=== PATIENT | female | born 1935 | race Caucasian/White ===

== ENCOUNTER 2017-12-30 10:22 | Emergency (ER) | payer BC, MEDICARE ==
--- NOTE | 2017-12-30 11:45 | RAD ---
CHEST 1 VIEW: Date: 12/30/17 HISTORY: Cough. COMPARISON: Chest 2 views dated 10/03/14. FINDINGS: Increased interstitial markings in the lung bases involving the hilum. No pneumothorax. No focal air space consolidation. No effusion. Cardiac silhouette and mediastinal contours are similar. 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 CT may be helpful in this patient. Pulmonary edema or chronic atypical infectious process is also a possibility, although felt less likely. POS: [facility]
--- NOTE | 2018-01-14 15:08 | EKG ---
Test Reason : Blood Pressure : / mmHG Vent. Rate : 080 BPM Atrial Rate : 080 BPM P-R Int : 148 ms QRS Dur : 076 ms QT Int : 368 ms P-R-T Axes : 044 052 059 degrees QTc Int : 424 ms Normal sinus rhythm Low voltage QRS Nonspecific ST abnormality Abnormal ECG Confirmed by TRUDY LEONE D.O. ([id number]), design editor EVER BRENNER ([id number]) on 01/14/2018 3:07:43 PM Referred By: Confirmed By:TRUDY LEONE D.O.
== END 2017-12-30 12:54 | disposition home or self-care (01) ==
LOC: ERS 10:22
DX: J18.9 Pneumonia, unspecified organism (principal); K21.9 Gastro-esophageal reflux disease without esophagitis; E78.5 Hyperlipidemia, unspecified; Z87.891 Personal history of nicotine dependence; Z79.899 Other long term (current) drug therapy
CPT/HCPCS: 71045; 87081; 87430; 93005

== ENCOUNTER 2017-12-30 21:36 | Emergency (ER) | payer BC, MEDICARE ==
[2017-12-30] MEDS ORDERED: Ondansetron HCl/PF 4 MG/2 ML Vial ONE ×2 (22:20→22:36)
[2017-12-30 22:43] LABS: #Basophils 0.1 thou/uL (0.0-0.2); #Eosinphils 0.3 thou/uL (0.0-0.7); #Lymphocytes 2.3 thou/uL (1.20-3.40); #Monocytes 0.7 thou/uL (0.11-0.59); #Neutrophils 8.1 thou/uL (1.40-6.50); %Basophils 0.5 % (0.0-1.0); %Eosinophils 2.6 % (0.0-10.0); %Lymphocytes 19.7 % (21.0-51.0); %Monocytes 6.4 % (0.0-10.0); %Neutrophils 70.8 % (42.0-75.0); Hemoglobin 13.9 g/dL (12.0-16.0); Mean Corpuscular HGB CONC 33.6 g/dL (32.0-36.0); Mean Corpuscular Hemoglobin 31.6 pg (27.0-31.0); Mean Platelet Volume 6.2 fL (7.4-10.4); Platelet Count 275 thou/uL (130-400); RBC Distribution Width 12.2 % (11.5-14.5); Red Blood Cell (RBC) Count 4.39 mill/uL (4.20-5.40); White Blood Cell (WBC) Count 11.4 thou/uL (4.8-10.8)
[2017-12-30 23:07] LABS: ALT (SGPT) 18 U/L (8-55); AST (SGOT) 12 U/L (5-34); Albumin 4.1 g/dL (3.4-4.8); Alkaline Phosphatase 68 U/L (40-150); Anion Gap 16 mmol/L (10-20); BUN (Urea Nitrogen) 13 mg/dL (9.8-20.1); Bilirubin, Total 0.7 mg/dL (0.2-1.2); Calc. Creatinine Clearance 0 mL/min (70-130); Calcium 9.4 mg/dL (7.8-10.44); Carbon Dioxide 27 mmol/L (23-31); Chloride 97 mmol/L (98-107); Estimated GFR-MDRD 68; Globulin 3.1 g/dL (2.4-3.5); Glucose 129 mg/dL (83-110); Potassium 3.8 mmol/L (3.5-5.1); Protein, Total 7.2 g/dL (6.0-8.3); Sodium 136 mmol/L (136-145)
[2017-12-30 23:12] LABS: CKMB 1.1 ng/mL (0-6.6); Troponin I Less than 0.010 ng/mL (< 0.028)
[2017-12-31] MEDS ORDERED: Metoclopramide HCl 10 MG/2 ML VIAL ONE (00:39)
[2017-12-31] MEDS ORDERED: Doxycycline 100 MG CAP PO SCH (01:30)
--- NOTE | 2018-02-15 01:12 | EKG ---
Test Reason : Blood Pressure : / mmHG Vent. Rate : 073 BPM Atrial Rate : 073 BPM P-R Int : 144 ms QRS Dur : 064 ms QT Int : 404 ms P-R-T Axes : 058 036 056 degrees QTc Int : 445 ms Normal sinus rhythm Low voltage QRS Borderline ECG Confirmed by ALFONSO OTERO ([id number]), assistant editor EVER BRENNER ([id number]) on 02/15/2018 1:12:17 AM Referred By: Confirmed By:ALFONSO OTERO
== END 2017-12-31 01:58 | disposition home or self-care (01) ==
LOC: ERS 21:36
DX: R11.10 Vomiting, unspecified (principal); T37.8X5A Adverse effect of other specified systemic anti-infectives and antiparasitics, initial encounter; K30 Functional dyspepsia; K21.9 Gastro-esophageal reflux disease without esophagitis; E78.5 Hyperlipidemia, unspecified; Z87.891 Personal history of nicotine dependence; Z79.891 Long term (current) use of opiate analgesic; Z79.899 Other long term (current) drug therapy
CPT/HCPCS: 71045; 80053; 82553; 84484; 85025; 87081; 87430; 93005; 96361; 96365; 96375; J2405; J2765

== ENCOUNTER 2018-12-02 15:24 | Outpatient (CLI) | payer BC, MEDICARE ==
--- NOTE | 2018-12-02 17:18 | BD ---
DEXA BONE DENSITY: HISTORY: Osteoporosis. Postmenopausal female. COMPARISON: None. FINDINGS: LUMBAR SPINE BMD (g/cm2) T-SCORE Z-SCORE L1 1.160 1.5 4.0 L2 1.257 2.1 4.8 L3 1.365 2.6 5.4 L4 1.198 1.2 4.2 TOTAL 1.238 1.7 4.5 FEMORAL NECK 1.038 1.7 4.1 TOTAL FEMUR 1.204 2.1 4.3 IMPRESSION: 1. Lumbar spine World Health Organization (WHO) classification is normal. Fracture risk not increas ed. 2. Femoral neck World Health Organization (WHO) classification is normal. 3. Ten year fracture risk: FRAX is not reported because all T-scores are at or above -1.0. POS: [facility]
== END 2018-12-02 15:25 | disposition home or self-care (01) ==
LOC: BICMAMMO 15:24
PROVIDERS: ATTEND Internal Medicine Rheumatology
DX: M81.0 Age-related osteoporosis without current pathological fracture (principal)
CPT/HCPCS: 77080

== ENCOUNTER 2019-01-08 14:01 | Outpatient (CLI) | payer BC, MEDICARE ==
--- NOTE | 2019-01-13 18:27 | MMO ---
Bilateral MAMMO Bilat Screen [facility]. CLINICAL HISTORY: Patient is 83 years old and is seen for screening. The patient has the following family history of breast cancer: 2 maternal aunts. The patient has no personal history of cancer. VIEWS: The views performed were: bilateral craniocaudal with tomosynthesis and bilateral mediolateral oblique with tomosynthesis. FILMS COMPARED: The present examination has been compared to prior imaging studies performed at [facility] on 02/16/2013, 03/22/2014 and 08/30/2015, and at [facility] on 02/26/2017. MAMMOGRAM FINDINGS: There are scattered fibroglandular densities. There are no suspicious masses, suspicious calcifications, or new areas of architectural distortion. IMPRESSION: THERE IS NO MAMMOGRAPHIC EVIDENCE OF MALIGNANCY. A ROUTINE FOLLOW-UP MAMMOGRAM IN 1 YEAR IS RECOMMENDED. THE RESULTS OF THIS EXAM WERE SENT TO THE PATIENT. ACR BI-RADS Category 1 - Negative MAMMOGRAPHY NOTE: 1. A negative mammogram report should not delay a biopsy if a dominant of clinically suspicious mass is present. 2. Approximately 10% to 15% of breast cancers are not detected by mammography. 3. Adenosis and dense breasts may obscure an underlying neoplasm.
== END 2019-01-08 14:02 | disposition home or self-care (01) ==
LOC: BICMAMMO 14:01
PROVIDERS: ATTEND Family Medicine
DX: Z12.31 Encounter for screening mammogram for malignant neoplasm of breast (principal)
CPT/HCPCS: 77063; 77067

== ENCOUNTER 2019-01-26 10:42 | Outpatient (CLI) | payer BC, MEDICARE | END 2019-01-26 10:43 | disposition home or self-care (01) | LOC: CTENTCT 10:42 → EDSTATUS 14:48 | PROVIDERS: ATTEND Specialist | DX: J01.81 Other acute recurrent sinusitis (principal) | CPT/HCPCS: 70486 ==

== ENCOUNTER 2020-08-22 13:19 | Outpatient (CLI) | payer OTHER, MEDICARE ==
--- NOTE | 2020-08-22 14:17 | MMO ---
Bilateral MAMMO Bilat Screen [facility]. CLINICAL HISTORY: Patient is 84 years old and is seen for screening. The patient has the following family history of breast cancer: 2 maternal aunts. The patient has no personal history of cancer. VIEWS: The views performed were: bilateral craniocaudal with tomosynthesis and bilateral mediolateral oblique with tomosynthesis. FILMS COMPARED: The present examination has been compared to prior imaging studies performed at [facility] on 03/22/2014 and 08/30/2015, and at [facility] on 02/26/2017 and 01/08/2019. This study has been interpreted with the assistance of computer-aided detection. MAMMOGRAM FINDINGS: There are scattered fibroglandular densities. There are stable benign appearing calcifications seen in both breasts. There are no suspicious masses, suspicious calcifications, or new areas of architectural distortion. IMPRESSION: THERE IS NO MAMMOGRAPHIC EVIDENCE OF MALIGNANCY. A ROUTINE FOLLOW-UP MAMMOGRAM IN 1 YEAR IS RECOMMENDED. THE RESULTS OF THIS EXAM WERE SENT TO THE PATIENT. ACR BI-RADS Category 2 - Benign finding MAMMOGRAPHY NOTE: 1. A negative mammogram report should not delay a biopsy if a dominant of clinically suspicious mass is present. 2. Approximately 10% to 15% of breast cancers are not detected by mammography. 3. Adenosis and dense breasts may obscure an underlying neoplasm. Reported by: CONSTANZA PEREIRA MD Electonically Signed: [id number]
== END 2020-08-22 13:20 | disposition home or self-care (01) ==
LOC: BICMAMMO 13:19
PROVIDERS: ATTEND Family Medicine
DX: Z12.31 Encounter for screening mammogram for malignant neoplasm of breast (principal); Z80.3 Family history of malignant neoplasm of breast
CPT/HCPCS: 77063; 77067

== ENCOUNTER 2021-02-14 10:32 | Outpatient (CLI) | payer MEDICARE | END 2021-02-14 10:33 | disposition home or self-care (01) | LOC: CTENTCT 10:32 | PROVIDERS: ATTEND Specialist | DX: J32.8 Other chronic sinusitis (principal) | CPT/HCPCS: 70486 ==

== ENCOUNTER 2021-05-23 09:52 | Outpatient (CLI) | payer MEDICARE | END 2021-05-23 09:53 | disposition home or self-care (01) | LOC: BICMAMMO 09:52 | PROVIDERS: ATTEND Internal Medicine Rheumatology | DX: M81.0 Age-related osteoporosis without current pathological fracture (principal) | CPT/HCPCS: 77080 ==

== ENCOUNTER 2022-03-05 12:27 | Outpatient (CLI) | payer MEDICARE ==
[2022-03-05] MEDS ORDERED: ISOVUE-370 76% 1 ML ONE (15:20)
== END 2022-03-05 12:28 | disposition home or self-care (01) ==
LOC: BICCT 12:27
PROVIDERS: ATTEND Physician Assistant Medical
DX: K51.00 Ulcerative (chronic) pancolitis without complications (principal); K21.9 Gastro-esophageal reflux disease without esophagitis; R10.33 Periumbilical pain
CPT/HCPCS: 74177; 82565

== ENCOUNTER 2022-10-16 15:16 | Outpatient (CLI) | payer MEDICARE, OTHER ==
[2022-10-16 17:04] LABS: #Basophils 0.1 thou/uL (0.0-0.2); #Eosinphils 0.2 thou/uL (0.0-0.7); #Lymphocytes 2.1 thou/uL (1.20-3.40); #Monocytes 0.6 thou/uL (0.11-0.59); #Neutrophils 4.8 thou/uL (1.40-6.50); %Basophils 0.7 % (0.0-1.0); %Eosinophils 3.1 % (0.0-10.0); %Lymphocytes 27.1 % (21.0-51.0); %Monocytes 7.8 % (0.0-10.0); %Neutrophils 61.3 % (42.0-75.0); Hemoglobin 13.2 g/dL (12.0-16.0); Mean Corpuscular HGB CONC 33.5 g/dL (32.0-36.0); Mean Corpuscular Hemoglobin 33.5 pg (27.0-31.0); Mean Platelet Volume 7.1 fL (7.4-10.4); Platelet Count 307 10x3/uL (130-400); RBC Distribution Width 11.6 % (11.5-14.5); Red Blood Cell (RBC) Count 3.93 mill/uL (4.20-5.40); White Blood Cell (WBC) Count 7.8 10x3/uL (4.8-10.8)
[2022-10-16 17:34] LABS: ALT (SGPT) 16 U/L (8-55); AST (SGOT) 15 U/L (5-34); Alkaline Phosphatase 60 U/L (40-110); Anion Gap 16 mmol/L (10-20); BUN (Urea Nitrogen) 22 mg/dL (9.8-20.1); Bilirubin, Total 0.8 mg/dL (0.2-1.2); Calc. Creatinine Clearance 0 mL/min (70-130); Calcium 9.2 mg/dL (7.8-10.44); Carbon Dioxide 24 mmol/L (23-31); Chloride 104 mmol/L (98-107); Estimated GFR 52; Globulin 2.4 g/dL (2.4-3.5); Glucose 171 mg/dL (83-110); Potassium 4.2 mmol/L (3.5-5.1); Protein, Total 6.4 g/dL (5.8-8.1); Sodium 140 mmol/L (136-145)
== END 2022-10-16 15:17 | disposition home or self-care (01) ==
LOC: SCSRAD 15:16
PROVIDERS: ATTEND Family Medicine
DX: R06.00 Dyspnea, unspecified (principal); R61 Generalized hyperhidrosis
CPT/HCPCS: 36415; 71046; 80053; 84443; 85025

== ENCOUNTER 2023-07-23 11:20 | Outpatient (CLI) | payer OTHER | END 2023-07-23 11:21 | disposition home or self-care (01) | LOC: SCSRAD 11:20 | PROVIDERS: ATTEND Family Medicine | DX: M25.561 Pain in right knee (principal); M25.562 Pain in left knee; M17.0 Bilateral primary osteoarthritis of knee ==

== ENCOUNTER 2023-08-20 17:00 | Outpatient (CLI) | payer OTHER | END 2023-08-20 17:01 | disposition home or self-care (01) | LOC: SLEEPLAB 17:00 | PROVIDERS: ATTEND Family Medicine | DX: G47.33 Obstructive sleep apnea (adult) (pediatric) (principal); R06.83 Snoring; G47.10 Hypersomnia, unspecified; I10 Essential (primary) hypertension; G47.00 Insomnia, unspecified; I49.3 Ventricular premature depolarization; I49.1 Atrial premature depolarization | CPT/HCPCS: 95811 ==

== ENCOUNTER 2024-07-19 08:20 | Inpatient (IN) | payer OTHER ==
[2024-07-13 11:07] VITALS: BMI 28.1
[2024-07-19] MEDS ORDERED: Vancomycin 1 GM/200 ML (FROZEN) BAG ONE (09:08)
[2024-07-19] MEDS ORDERED: Sodium Chloride 0.9% 100 ML ONE ×2 (09:08→09:25)
[2024-07-19] MEDS ORDERED: Tranexamic Acid 1,000 MG/10 ML VIAL ONE ×2 (09:08→12:32)
[2024-07-19] MEDS ORDERED: CEFAZOLIN 2 GM VIAL ONE (09:25)
[2024-07-19] MEDS ORDERED: Lidocaine 1% (PF) 30 ML VIAL ONE (09:25)
[2024-07-19] MEDS ORDERED: Bupivacaine 0.25% HCL 30 ML VIAL ONE (09:25)
[2024-07-19] MEDS ORDERED: Bupivacaine PF 0.5% 30 ML VIAL ONE (09:26)
[2024-07-19] MEDS ORDERED: fentaNYL 50 mcg/mL 1 mL Vial ONE (09:26)
[2024-07-19] MEDS ORDERED: PROPOFOL 20 ML ONE (09:56)
[2024-07-19] MEDS ORDERED: Lidocaine 1% PF 5 ML VIAL ONE (09:56)
[2024-07-19] MEDS ORDERED: methylPREDNISolone Acetate 40 mg/ml Vial ONE (09:57)
[2024-07-19] MEDS ORDERED: Sevoflurane 250 ML INH ANEST BOTTLE ONE (09:58)
[2024-07-19] MEDS ORDERED: fentaNYL 50 mcg/mL 1 mL Vial SLOW IVP PRN (09:58)
[2024-07-19] MEDS ORDERED: Promethazine HCl 25 MG/ML VIAL IM PRN ×2 (10:00→12:12)
[2024-07-19] MEDS ORDERED: Ropivacaine 0.2% 550 ML 550 ML NERVE BLCK SCH (10:00)
[2024-07-19] MEDS ORDERED: Ondansetron PF 4 MG/2 ML Vial IVP PRN ×2 (10:00→12:12)
[2024-07-19] MEDS ORDERED: traMADol HCl 50 MG TAB PO PRN ×2 (10:00)
[2024-07-19] MEDS ORDERED: fentaNYL PF 100 MCG/2 ML SYRINGE ONE ×3 (10:46→13:05)
[2024-07-19] MEDS ORDERED: PHENYLEPHRINE-NS 100 MCG/ML 10 ML SYRINGE ONE (10:51)
[2024-07-19] MEDS ORDERED: ePHEDrine Sulfate 50 MG/10 ML VIAL ONE (10:57)
[2024-07-19] MEDS ORDERED: Ondansetron PF 4 MG/2 ML Vial ONE (11:05)
[2024-07-19] MEDS ORDERED: Dexamethasone 4 mg/ml Vial ONE (11:05)
[2024-07-19] MEDS ORDERED: diphenhydrAMINE 25 MG CAP PO PRN (12:12)
[2024-07-19] MEDS ORDERED: Zolpidem Tartrate 5 MG TAB PO PRN (12:12)
[2024-07-19] MEDS ORDERED: Meclizine HCl 25 MG TAB PO PRN (12:14)
[2024-07-19] MEDS ORDERED: Ondansetron ODT 4 MG TAB PO PRN (12:14)
[2024-07-19] MEDS ORDERED: Pentazocine HCl/Naloxone HCl 50/0.5 MG TAB PO PRN (12:15)
[2024-07-19] MEDS ORDERED: Tranexamic Acid 1,000 MG in Sodium Chloride 0.9% 100 ML IVPB SCH (12:15)
[2024-07-19] MEDS: CEFAZOLIN 2 GM in Sodium Chloride 0.9% 100 ML IVPB SCH (17:52)
[2024-07-19] MEDS: FLU (Fluad Triv) TS24-25 (65UP)/MF59C/PF 45 MCG/0.5 ML Syringe IM ONE (17:54)
[2024-07-19] MEDS: Ketorolac Tromethamine 30 MG (1 mL) VIAL IVP SCH (17:55)
[2024-07-19] MEDS: Sodium Chloride 0.9% 1,000 ML IV SCH (17:55)
[2024-07-19] MEDS ORDERED: Non-Formulary Item 1 EACH (Fluticasone Propionate [Flonase Allergy Relief] 9.9 ML Bottle) ALT NARE SCH (21:00)
[2024-07-19] MEDS ORDERED: Simvastatin 20 MG TAB PO SCH (21:00)
[2024-07-19] MEDS ORDERED: Non-Formulary Item 1 EACH (Zolpidem Tartrate [Zolpidem Tartrate] 10 MG Tablet) PO SCH (21:00)
[2024-07-19] MEDS ORDERED: Non-Formulary Item 1 EACH (Mesalamine [Mesalamine] 1.2 GM Tablet.Dr) PO SCH (21:00)
[2024-07-19] MEDS ORDERED: Zolpidem Tartrate 5 MG TAB PO SCH (21:00)
[2024-07-19] MEDS: Senokot S 8.6-50 MG TAB PO SCH (21:29)
[2024-07-19] MEDS: Simvastatin 10 MG TAB PO SCH (21:29)
[2024-07-19] MEDS: Aspirin 81 mg Enteric Coated Tablet PO SCH (21:29)
[2024-07-19] MEDS: Mesalamine DR 400 mg Capsule PO SCH (21:29)
[2024-07-19] MEDS: Fluticasone Propionate Nasal Spray 16 gm Bottle NASAL SCH (21:30)
[2024-07-19] MEDS: Ferrous Gluconate 324 MG TAB PO SCH (21:33)
[2024-07-19] MEDS: Vancomycin 1.5 GM in Sodium Chloride 0.9% 250 ML 300 ML IVPB SCH (22:19)
[2024-07-19] MEDS: Zolpidem Tartrate 5 MG TAB PO PRN (23:46)
[2024-07-20 06:10] LABS: Hematocrit 35.4 % (36.0-47.0); Hemoglobin 11.2 g/dL (12.0-16.0); Mean Corpuscular HGB CONC 31.6 g/dL (32.0-36.0); Mean Corpuscular Volume 94.9 fL (78.0-98.0); Mean Platelet Volume 9.4 fL (7.4-10.4); Platelet Count 209 10x3/uL (130-400); RBC Distribution Width 12.4 % (11.5-14.5); Red Blood Cell (RBC) Count 3.73 mill/uL (4.20-5.40)
[2024-07-20] MEDS: CeleCOXIB 100 MG CAP PO SCH (08:53)
[2024-07-20] MEDS: Multivitamin W/ Minerals 1 TAB PO SCH (08:53)
[2024-07-20] MEDS: Pantoprazole DR 40 MG TAB PO SCH (08:54)
[2024-07-20] MEDS ORDERED: Aspirin Chewable 81 MG TAB PO SCH (09:00)
[2024-07-20] MEDS ORDERED: Non-Formulary Item 1 EACH (Celecoxib [Celebrex] 200 MG Capsule) PO SCH (09:00)
[2024-07-20] MEDS: HYDROcodone/Acetaminophen 10/325 mg Tablet PO PRN (20:40)
[2024-07-21 05:07] LABS: Hematocrit 34.6 % (36.0-47.0); Hemoglobin 11.3 g/dL (12.0-16.0); Mean Corpuscular HGB CONC 32.7 g/dL (32.0-36.0); Mean Corpuscular Hemoglobin 29.8 pg (27.0-31.0); Mean Corpuscular Volume 91.3 fL (78.0-98.0); Mean Platelet Volume 9.5 fL (7.4-10.4); Platelet Count 196 10x3/uL (130-400); RBC Distribution Width 12.6 % (11.5-14.5); Red Blood Cell (RBC) Count 3.79 mill/uL (4.20-5.40)
[2024-07-21] MEDS: HYDROcodone/Acetaminophen 10/325 mg Tablet PO PRN (14:44)
[2024-07-22 05:59] LABS: Hematocrit 36.3 % (36.0-47.0); Hemoglobin 11.9 g/dL (12.0-16.0); Mean Corpuscular HGB CONC 32.8 g/dL (32.0-36.0); Mean Corpuscular Hemoglobin 30.1 pg (27.0-31.0); Mean Corpuscular Volume 91.7 fL (78.0-98.0); Mean Platelet Volume 9.7 fL (7.4-10.4); Platelet Count 213 10x3/uL (130-400); RBC Distribution Width 12.7 % (11.5-14.5); Red Blood Cell (RBC) Count 3.96 mill/uL (4.20-5.40)
[2024-07-22] MEDS: Acetaminophen 325 MG TAB PO PRN (06:39)
[2024-07-23 08:07] VITALS: BP 133/79; TEMP 98
== END 2024-07-23 11:50 | disposition home or self-care (01) | DRG 470 ==
LOC: SDC 08:20 → SURG B 14:52 → SDC 17:46 → SURG B 17:47 → OBSVTOIN 07-20 13:45
PROVIDERS: ADMIT Orthopaedic Surgery; ATTEND Orthopaedic Surgery
PROC: 0SRD0J9 Replacement of Left Knee Joint with Synthetic Substitute, Cemented, Open Approach (ICD-10-PCS; principal; 2024-07-19)
PROC: 8E0Y0CZ Robotic Assisted Procedure of Lower Extremity, Open Approach (ICD-10-PCS; 2024-07-19)
DX: M17.0 Bilateral primary osteoarthritis of knee (principal); D62 Acute posthemorrhagic anemia; E78.00 Pure hypercholesterolemia, unspecified; M19.90 Unspecified osteoarthritis, unspecified site; Z90.89 Acquired absence of other organs; Z90.49 Acquired absence of other specified parts of digestive tract; Z98.890 Other specified postprocedural states; Z87.891 Personal history of nicotine dependence; Z79.82 Long term (current) use of aspirin; Z79.899 Other long term (current) drug therapy; M17.12 Unilateral primary osteoarthritis, left knee
CPT/HCPCS: 36415; 36416; 85027; 90653; A4306; C1713; C1776; C1889; G0378; J0665; J1030; J1100; J1885; J2405; J2704; J2795; J3010; J3370; J3370-JW; J7030; J7050